=== PATIENT | female | born 1995 | race Caucasian/White ===

== ENCOUNTER 2021-12-31 09:49 | Outpatient (CLI) | payer OTHER, SELFPAY ==
[2022-01-04 13:47] LABS: NIL 0.01 IU/mL; Quantiferon TB Plus, 1T NEGATIVE (NEGATIVE); TB2-NIL 0.01 IU/mL
== END 2021-12-31 09:50 | disposition home or self-care (01) ==
LOC: CHSLAB 09:53
PROVIDERS: PCP Internal Medicine; Visit Provider Nurse Practitioner Family
DX: Z00.00 Encounter for general adult medical examination without abnormal findings (principal)
CPT/HCPCS: 36415; 86480

== ENCOUNTER 2022-05-20 06:07 | Emergency (ER) | payer OTHER, SELFPAY ==
[2022-05-20 06:11] VITALS: BP 112/74; PULSE 108; RESP 15; TEMP 36.7; O2SAT 99
[2022-05-20 06:22] LABS: Add Urine Microscopic? YES; Appearance Urine Clear (Clear); Bilirubin Urine Negative (Negative); Blood Urine Negative (Negative); Color Urine Yellow (Yellow); Glucose Urine UA Negative (Negative); Ketones Urine 1+ (Negative); Leukocyte Esterase Ur 1+ (Negative); Nitrate Urine Negative (Negative); Protein Urine Negative (Negative); Specific Grav Ur 1.025 (1.010-1.020); Urobilinogen Urine 0.2 mg/dL (0.2-1.0)
[2022-05-20 06:24] LABS: Pregnancy On Board Control Positive; Urine Pregnancy Test Negative
--- NOTE | 2022-05-20 06:24 | ECG_ITS ---
Measurements Intervals [place] Rate: 88 P: 70 [place]: 168 QRS: 79 QRSD: 73 T: 67 QT: 346 QTc: 419 Interpretive Statements SINUS RHYTHM CANNOT RULE OUT SEPTAL INFARCT, AGE INDETERMINATE ABNORMAL ECG NO PREVIOUS ECG AVAILABLE FOR COMPARISON Electronically Signed On 05-20-2022 6:52:41 [employer] by Chinedu Hatfield D.O.
--- NOTE | 2022-05-20 06:27 | ED.ABDPAIN ---
HPI - Abdominal Pain General Chief Complaint: Abdominal Pain <Armando Nash MD - Last Filed: 05/20/22 07:07> Stated Complaint: Abdominal Pain <Armando Nash MD - Last Filed: 05/20/22 07:07> Time Seen by Provider: 05/20/22 06:18 <Armando Nash MD - Last Filed: 05/20/22 07:07> Source: patient and family <Armando Nash MD - Last Filed: 05/20/22 07:07> Mode of arrival: ambulatory <Armando Nash MD - Last Filed: 05/20/22 07:07> Limitations: no limitations <Armando Nash MD - Last Filed: 05/20/22 07:07> History of Present Illness HPI narrative: this is a 26-year-old female with no significant past medical history presents with abdominal pain periumbilical suprapubic with some radiation to bilateral flanks and right lower quadrant for the past 24hours has gotten worse with additionally nausea no vomiting no fever chills no diarrhea or constipation. Currently there is no chest pain no shortness of breath, patient denies any dysuria no hematuria no urinary frequency. <Armando Nash MD - Last Filed: 05/20/22 07:07> MD elicited complaint: abdominal pain <Armando Nash MD - Last Filed: 05/20/22 07:07> Onset (ago): day(s) <Armando Nash MD - Last Filed: 05/20/22 07:07> Pain Consistency: constant <Armando Nash MD - Last Filed: 05/20/22 07:07> Location: periumbilical, LLQ, L flank and suprapubic <Armando Nash MD - Last Filed: 05/20/22 07:07> Severity: moderate <Armando Nash MD - Last Filed: 05/20/22 07:07> Pain scale (0-10): 6 <Armando Nash MD - Last Filed: 05/20/22 07:07> Quality: aching and fullness <Armando Nash MD - Last Filed: 05/20/22 07:07> Radiation: RLQ, suprapubic, L flank and R flank <Armando Nash MD - Last Filed: 05/20/22 07:07> Migration to: periumbilical <Armando Nash MD - Last Filed: 05/20/22 07:07> Exacerbating factors: nothing <Armando Nash MD - Last Filed: 05/20/22 07:07> Relieving factors: nothing <Armando Nash MD - Last Filed: 05/20/22 07:07> Related Data Home Medications: Home Medications Medication Instructions Recorded Confirmed No Home Medications 05/20/22 05/20/22 <Armando Nash MD - Last Filed: 05/20/22 07:07> Review of Systems Review of Systems: All systems reviewed & are unremarkable except as noted in HPI and below <Armando Nash MD - Last Filed: 05/20/22 07:07> PMFSH Past Medical History Medical History: Medical History Patient denies medical problems <Armando Nash MD - Last Filed: 05/20/22 07:07> Exam Const: General: healthy appearing <Armando Nash MD - Last Filed: 05/20/22 07:07> Nutritional Appearance: well nourished <Armando Nash MD - Last Filed: 05/20/22 07:07> Orientation/consciousness: patient oriented x3 <Armando Nash MD - Last Filed: 05/20/22 07:07> Limitations: no limitations <Armando Nash MD - Last Filed: 05/20/22 07:07> HENMT: Head: normal to inspection <Armando Nash MD - Last Filed: 05/20/22 07:07> Face and sinus: normal facial exam <Armando Nash MD - Last Filed: 05/20/22 07:07> Mouth: Yes Normal oral and palatal mucosa present <Armando Nash MD - Last Filed: 05/20/22 07:07> Eyes: Conjunctivae: conjunctivae normal <Armando Nash MD - Last Filed: 05/20/22 07:07> Pupils: Equal, round and reactive pupils present <Armando Nash MD - Last Filed: 05/20/22 07:07> Neck: Neck: normal visual inspection, no lymphadenopathy and no meningeal signs <Armando Nash MD - Last Filed: 05/20/22 07:07> Chest: Chest palpation & inspection: normal inspection of the chest <Armando Nash MD - Last Filed: 05/20/22 07:07> Resp: Effort & Inspection: normal respiratory effort <Armando Nash MD - Last Filed: 05/20/22 07:07> Cardio:
[2022-05-20 06:28] LABS: Bacteria Urine 1+ /hpf; RBC Urine None seen /hpf (0-2); Squamous Epithelial Cell Urine Moderate /hpf (Few); WBC Urine 0-3 /hpf (0-3)
[2022-05-20] MEDS: SODIUM CHLORIDE 0.9% IV 1,000 ML 999 ML IV CONT (06:37)
[2022-05-20] MEDS: KETOROLAC 30 MG/ML VIAL (*BKC) IV PUSH (06:38)
[2022-05-20 06:42] LABS: Basophils Absolute Auto 0.03 K/mm3 (0.00-0.10); Basophils Percent Auto 0.5 % (0.0-1.0); Eosinophils Absolute Auto 0.09 K/mm3 (0.02-0.50); Eosinophils Percent Auto 1.6 % (1.0-6.0); Hematocrit 40.4 % (35.0-49.0); Hemoglobin 13.7 g/dL (12.0-15.0); Immature Granulocyte Absolute 0.02 K/mm3 (0.00-0.00); Immature Granulocyte Percent A 0.3 % (0.0-0.0); Lymphocytes Absolute Auto 1.27 K/mm3 (1.10-4.50); Lymphocytes Percent Auto 22.1 % (18.0-42.0); Mean Corpuscular HGB Conc 33.9 g/dL (32.0-36.0); Mean Corpuscular Hemoglobin 31.1 pg (27.0-31.0); Mean Corpuscular Volume 91.8 fL (78.0-102.0); Mean Platelet Volume 10.8 fl (9.2-11.8); Monocytes Absolute Auto 0.62 K/mm3 (0.10-0.90); Monocytes Percent Auto 10.8 % (2.0-11.0); Neutrophils Absolute Auto 3.7 K/mm3 (1.7-7.2); Neutrophils Percent Auto 64.7 % (50.0-70.0); Platelet Count Result 294 K/mm3 (150-420); Red Cell Distribution Width 12.1 % (11.6-14.4); White Blood Count 5.7 K/mm3 (4.8-10.8)
[2022-05-20 06:56] LABS: INR 1.1; Partial Thromboplastin Time 31.4 SEC (23.90-30.70); Prothrombin Time 11.9 Seconds (9.50-12.10)
[2022-05-20 07:01] LABS: Alanine Aminotransferase 17 U/L (14-59); Albumin Level 3.7 g/dL (3.4-5.0); Alkaline Phosphatase 87 U/L (46-116); Anion Gap 9 mmol/L (8-16); Aspartate Amino Transferase 20 U/L (15-37); Bilirubin,Total 0.7 mg/dL (0.00-1.00); Blood Urea Nitrogen 16 mg/dL (7-18); Calcium 8.3 mg/dL (8.5-10.1); Carbon Dioxide 27 mmol/L (21-32); Chloride 99 mmol/L (98-108); Estimated CRCL calculation 62 ml/min; Estimated Glomerular Filt Rate > 60; Glucose 98 mg/dL (70-99); Lipase 28 U/L (16-77); Osmolality Calculated 281 mOsm/kg (285-295); Potassium 3.1 mmol/L (3.5-5.1); Sodium 135 mmol/L (136-145); Total Protein 7.2 g/dL (6.4-8.2)
[2022-05-20 07:06] LABS: Lactic Acid Reflex 1.1 mmol/L (0.4-2.0)
[2022-05-20 07:26] VITALS: BP 96/54; PULSE 78; RESP 18; TEMP 36.6; O2SAT 100
[2022-05-20] MEDS: POTASSIUM CHLORIDE 20 MEQ TABLET PO (07:29)
== END 2022-05-20 07:36 | disposition home or self-care (01) ==
PROVIDERS: Emergency Medicine; Emergency Provider Internal Medicine Critical Care Medicine; PCP Internal Medicine
DX: R10.33 Periumbilical pain (principal); E87.6 Hypokalemia
CPT/HCPCS: 36415; 80053; 81001; 81025; 83605; 83690; 85025; 85610; 85730; 93005; 96361; 96374; 99284; A9270; J1885; J7030